=== PATIENT | female | born 1980 | race Caucasian/White ===

== ENCOUNTER 2016-09-17 20:55 | Emergency (ER) | payer OTHER ==
[~2016-09-17] VITALS: Ht 175.3 cm; Wt 111.5 kg
[2016-09-17 21:04] VITALS: Ht 175.3 cm; Wt 111.5 kg
[2016-09-17] MEDS ORDERED: AZIT250T94 PO (21:14)
--- NOTE | 2016-09-17 21:37 | ERD ---
ER Documentation Chief Complaint Date/Time DATE: 09/17/16 TIME: 21:36 Chief Complaint sore throat x 2 weeks HPI This is a 35-year-old female presents to the ER with a sore throats, cough for the last 2 weeks. Patient is currently 9 weeks . A0. Patient denies any pelvic pain or any vaginal bleeding. Patient states that cough is productive, worse at night. She hasn't taken any medications as she is afraid about it will harm the baby. Patient denies any chest pain or any shortness of breath. ROS 12 point review of systems was done, all negative except per HPI. Medications Home Meds Active Scripts Azithromycin* (Zithromax*) 250 Mg Tablet, 250 MG PO .ZPACK DIRECTED, #6 TAB TAKE 500 MG (2 TABS) THE FIRST DAY THEN 250 MG (1 TAB) DAYS 2-5 Prov:MILADYS LINARES 09/17/16 Allergies Allergies: Coded Allergies: No Known Allergy (Verified , 09/17/16) Physical Exam Vitals Vital Signs Date Time Temp Pulse Resp B/P Pulse Ox O2 Delivery O2 Flow Rate FiO2 09/17/16 21:04 98.0 75 20 130/77 99 Physical Exam GENERAL: The patient is well-developed, well-nourished, in no acute distress. NECK: Cervical spine is non tender with no step off. Supple, no nuchal rigidity HEENT: Atraumatic. Pupils equal, round and reactive to light. Extraocular muscles are grossly intact. Conjunctivae pink, no discharge. Bilateral tympanic membranes are clear with no evidence of erythema, effusion or dulling of the light reflex. Tonsilar erythema with no exudates or uvular deviation. Clear rhinorrhea. RESPIRATORY: Clear to auscultation bilaterally. There are no rales, wheezes or rhonchi. HEART: Regular rate and rhythm. No murmurs, clicks, rubs or gallops. EXTREMITIES: No clubbing or cyanosis. Full range of motion. Grossly neurovascularly intact. NEUROLOGIC: Alert and oriented. Cranial nerves II through XII are intact. SKIN: There is no rash. The skin is warm and dry. Procedures/MDM Differential diagnosis includes but is not limited to; Viral URI, allergic rhinitis, bronchitis, pertussis,pneumonia. This is likely bronchitis. Clinical suspicion for pneumonia is low as patient appears well, is not hypoxic or in any respiratory distress. Additionally, patients physical examination is benign. Plan was discussed with patient they understand and agree. Patient needs to follow up with PCP in 1-2 days or return to ER sooner if symptoms worsen. Departure Diagnosis: Primary Impression: Bronchitis Condition: Stable Patient Instructions: Acute Bronchitis Additional Instructions: Call your primary care doctor TOMORROW for an appointment during the next 1-2 days.See the doctor sooner or return here if your condition worsens before your appointment time. MILADYS LINARES Sep 17, 2016 21:37
== END 2016-09-17 21:13 | disposition home or self-care (01) ==
LOC: E/R 20:55
DX: O99.511 Diseases of the respiratory system complicating pregnancy, first trimester (principal); J20.9 Acute bronchitis, unspecified; Z3A.09 9 weeks gestation of pregnancy
CPT/HCPCS: 99283